=== PATIENT | female | born 1995 | race Caucasian/White ===

== ENCOUNTER 2021-10-08 18:28 | Emergency (ER) | payer OTHER ==
[2021-10-08 19:18] VITALS: BP 137/83; PULSE 65; TEMP 98.1; BMI 30.5
== END 2021-10-08 20:30 | disposition left against medical advice (07) ==
LOC: JER 18:28
DX: R11.10 Vomiting, unspecified (principal)
CPT/HCPCS: 99281-25

== ENCOUNTER 2023-01-16 14:36 | Emergency (ER) | payer OTHER ==
[2023-01-16 14:55] VITALS: RESP 20; BMI 29.7
[2023-01-16] MEDS ORDERED: ONDANSETRON 4 MG/2 ML VIAL IVPUSH ONE (15:45)
[2023-01-16] MEDS ORDERED: LACTATED RINGERS SOLUTION 1000 ML INFUS.BAG IV ONE (15:51)
[2023-01-16] MEDS ORDERED: FAMOTIDINE 20 MG/50 ML IVPB 20 MG/50 ML MG IVPB ONE ×2 (15:51→16:05)
[2023-01-16] MEDS ORDERED: ONDANSETRON 4 MG/2 ML VIAL ONE (16:04)
[2023-01-16 16:30] LABS: BASO % 0.3 % (0-2.0); EOS % 0.4 % (0-4.5); HEMOGLOBIN 13.5 GM/dL (10.7-15.3); MCH 27.1 pg (25.7-33.7); MEAN CELL VOLUME 82.3 fl (80-96); MONO % 7.5 % (3.8-10.2); NEUT % 66.8 % (42.8-82.8); PLATELET COUNT 322 10^3/uL (134-434); RBC 4.98 M/mm3 (3.60-5.2); RDW 13.8 % (11.6-15.6); WHITE BLOOD COUNT 11.9 K/mm3 (4.0-10.0)
[2023-01-16 16:54] LABS: BLOOD UREA NITROGEN 10.5 mg/dL (7-18); CALCIUM 9.9 mg/dL (8.5-10.1)
[2023-01-16 16:57] LABS: CREATININE 0.9 mg/dL (0.55-1.3)
[2023-01-16 16:59] LABS: BILIRUBIN,TOTAL 1.4 mg/dL (0.2-1); TOT PROT 8.2 g/dl (6.4-8.2)
[2023-01-16] MEDS ORDERED: METOCLOPRAMIDE HCL INJECTION 10 MG/2 ML VIAL IVPUSH ONE (19:42)
[2023-01-16 19:47] LABS: CALCIUM 9.2 mg/dL (8.5-10.1)
[2023-01-16 19:48] LABS: BLOOD UREA NITROGEN 9.7 mg/dL (7-18)
[2023-01-16 19:51] LABS: CREATININE 0.8 mg/dL (0.55-1.3)
[2023-01-16 20:04] VITALS: BP 120/81; PULSE 50; TEMP 98.1
[2023-01-16] MEDS ORDERED: METOCLOPRAMIDE HCL INJECTION 10 MG/2 ML VIAL ONE (20:21)
== END 2023-01-16 22:16 | disposition home or self-care (01) ==
LOC: JER 14:36
PROC: 3E033GC Introduction of Other Therapeutic Substance into Peripheral Vein, Percutaneous Approach (ICD-10-PCS; principal; 2023-01-16)
PROC: 3E033GC Introduction of Other Therapeutic Substance into Peripheral Vein, Percutaneous Approach (ICD-10-PCS; 2023-01-16)
PROC: 3E033GC Introduction of Other Therapeutic Substance into Peripheral Vein, Percutaneous Approach (ICD-10-PCS; 2023-01-16)
DX: R11.2 Nausea with vomiting, unspecified (principal); R10.13 Epigastric pain; R63.8 Other symptoms and signs concerning food and fluid intake; K59.00 Constipation, unspecified; F41.9 Anxiety disorder, unspecified; F12.288 Cannabis dependence with other cannabis-induced disorder
CPT/HCPCS: 36415; 71045-TC-FY; 76705-TC; 80048; 80053; 83690; 84703; 85025; 93005; 93010; 99285-25